=== PATIENT | female | born 1995 | race Two or more races ===

== ENCOUNTER 2025-03-07 14:11 | Emergency (ER) | payer MEDICAID, OTHER ==
[~2025-03-07] VITALS: Ht 152.4 cm; Wt 85.2 kg
--- NOTE | 2025-03-07 14:21 | ECG ---
[facility] Test Date: 2025-03-07 Test Time: 14:20:54 Pat Name: LITO DELEON Department: ER Room: Gender: F Baller Tender: SHAZIA : 1995 Requested By: ELIAS HUITRON Order Number: [id number] Reading MD: Gamal Snow Measurements Intervals [place] Rate: 103 P: 43 [place]: 155 QRS: 60 QRSD: 112 T: 35 QT: 341 QTc: 447 Interpretive Statements Sinus tachycardia Incomplete right bundle branch block Baseline wander in lead(s) I,II,aVR Electronically Signed On 03-08-2025 21:03:11 PDT by Gamal Snow Please click the below link to view image of tracing.
[2025-03-07 14:43] LABS: Urine Bacteria FEW /hpf (None Seen); Urine Blood TRACE /uL (Negative); Urine Clarity Turbid (Clear); Urine Color Yellow (Yellow); Urine Mucus FEW (None Seen); Urine Protein, UAD TRACE (Negative); Urine Specific Gravity 1.032 (1.001-1.035); Urine Squamous Epithelial Cell MOD /hpf (<5); Urine Urobilinogen Normal (Negative); Urine WBC 12 /HPF (0-5); Urine pH 6.5 (5.0-9.0)
--- NOTE | 2025-03-07 15:25 | ED.PDOC ---
GI ASSESSMENT HPI Comments 29 year old female presents to the ED with a chief complaint of abdominal pain onset last night. Patient states she began experiencing epigastric pain radiates to chest as well as shortness of breath. Patient noticed pain worsens when she tries to lay down. Denies PMHx as well as dizziness, nausea, vomiting, diarrhea, headache, fever, chills. No other symptoms or modifying factors present at this time. 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 Family History Family History: Reviewed,noncontributory to illness, No family hx of Cancer, No family hx of DM, No family hx of Heart christie, No family hx of HTN, No family hx ofKidney christie, No family hx of Liver christie, No family hx of Lung christie, No family hx of Stroke Social History Smoker: Non-Smoker Alcohol: Denies ETOH Use Drugs: Denies Drug Use Lives In: Home Constitutional: denies: chills, diaphoresis, fatigue, fever, malaise, sweats, weakness, others EENTM: denies: blurred vision, double vision, ear bleeding, ear discharge, ear drainage, ear pain, ear ringing, eye pain, eye redness, hearing loss, mouth pain, mouth swelling, nasal discharge, nose bleeding, nose congestion, nose pain, photophobia, tearing, throat pain, throat swelling, voice changes, others Respiratory: reports: shortness of breath; denies: cough, hemoptysis, orthopnea, SOB at rest, SOB with excertion, stridor, wheezing, others Cardiovascular: reports: chest pain; denies: dizzy spells, diaphoresis, Dyspnea on exertion, edema, irregular heart beat, left arm pain, lightheadedness, palpitations, PND, syncope, others Gastrointestinal: reports: abdominal pain; denies: abdomen distended, blood streaked bowels, constipated, diarrhea, dysphagia, difficulty swallowing, hematemesis, melena, nausea, poor appetite, poor fluid intake, rectal bleeding, rectal pain, vomiting, others Genitourinary: denies: abnormal vagina bleeding, burning, dyspareunia, dysuria, flank pain, frequency, hematuria, incontinence, pain, , vagina discharge, urgency, others Neurological: denies: dizziness, fainting, headache, left sided numbness, left sided weakness, numbness, paresthesia, pre-existing deficit, right sided numbness, right sided weakness, seizure, speech problems, tingling, tremors, we akness, others Musculoskeletal: denies: back pain, gout, joint pain, joint swelling, muscle pain, muscle stiffness, neck pain, others Integumetry: denies: bruises, change in color, change in hair/nails, dryness, laceration, lesions, lumps, rash, wounds, others Allergic/Immunocompromised: denies: Difficulty Healing, Frequent Infections, Hives, Itching, others Hematologic/Lymphatic: denies: anemia, blood clots, easy bleeding, easy bruising, swollen glands, others Endocrine: denies: excessive hunger, excessive sweating, excessive thirst, excessive urination, flushing, intolerance to cold, intolerance to heat, unexplained weight gain, unexplained weight loss, others Psychiatric: denies: anxiety, bipolar disorder, depression, hopeless, panic disorder, schizophrenia, sleepless, suicidal, others All Other Systems: Reviewed and Negative Physical Exam General Appearance: No Apparent Distress, Normal HEENT: Normal ENT Inspection, Pharynx Normal, TMs Normal Neck: Full Range of Motion, Non-Tender, Normal, Normal Inspection Respiratory: Chest Non-Tender, Lungs Clear, No Accessory Muscle Use, No Respiratory Distress, Normal Breath Sounds Cardiovascular: No Edema, No JVD, No Murmur, No Gallop, Normal Peripheral Pulses, Regular Rate/Rhythm Breast Exam: Deferred Gastrointestinal: No Organomegaly, Non Tender, No Pulsatile Mass, Normal Bowel Sounds, Soft Genitalia: Deferred Pelvic: Deferred Rectal: Deferred Extremities: No calf tenderness, Normal capillary refill, Normal inspection, Normal range of motion, Non-tender, No pedal edema Musculoskeletal : Apperance: Normal Neurologic: Alert, metalizing supervisor II-XII nml as Tested, No Motor Deficits, Normal Affect, Normal Mood, No Sensory Deficits Cerebellar Function: Normal Reflexes: Normal Skin: Dry, Normal Color, Warm Lymphatic: No Adenopathy EKG EKG : Pulse Rate (adult): 103 Cardiac Rhythm: ST Was a procedure done? Was a procedure done?: No GI differential Dx Differential Diagnosis: GI hemorrhage, Ovarian cyst/torsion, UTI, Urolithiasis, Diabetes/ DKA, Drug toxicity, Electrolyte Imbalance, Food Poisoning, Impaction, Malnutrition, Anemia X-Ray, Labs, Meds, VS Vital Signs Date Time Temp Pulse Resp B/P (MAP) Pulse Ox O2 Delivery O2 Flow Rate FiO2 03/07/25 17:13 99.8 111 20 124/74 (91) 99 99.8 03/07/25 15:25 103 03/07/25 14:20 103 03/07/25 14:14 98.1 101 16 115/86 (96) 98 98.1 Lab Test 03/07/25 15:29 03/07/25 14:32 03/07/25 14:19 Range/Units Troponin I High Sensitivity < 3 L < 3 L </=34 ng/L Urine Color Yellow Yellow Urine Clarity Turbid H Clear Urine pH 6.5 5.0-9.0 Urine Specific [place] 1.032 1.001-1.035 Urine Protein Trace H Negative Urine Ketones Negative Negative Urine Blood Trace H Negative /uL Urine Nitrite Negative Negative Urine Bilirubin Negative Negative Urine Urobilinogen Normal Negative mg/dL Urine Leukocyte Esterase 2+ Negative /uL Urine RBC 13 0 - 4 /hpf Urine Microscopic WBC 12 H 0-5 /HPF Urine Squamous Epithelial Cells Mod <5 /hpf Urine Bacteria Few H None Seen /hpf Urine Mucus Few None Seen Urine Glucose Normal Normal mg/dL Urine Test Negative Negative White Blood Count 8.6 4.4-10.8 10^3/uL Red Blood Count 4.91 4.0-5.20 10^6/uL Hemoglobin 14.6 12.2-16.2 g/dL Hematocrit 42.6 36.0-46.0 % Mean Corpuscular Volume 86.7 80.0-100.0 fL Mean Corpuscular Hemoglobin 29.6 28.0-32.0 pg Mean Corpuscular Hemoglobin Concent 34.2 32.0-36.0 g/dL Red Cell Distribution Width 13.5 11.8-14.3 % Platelet Count 302 140-450 10^3/uL Mean Platelet Volume 7.9 6.9-10.8 fL Neutrophils (%) (Auto) 71.5 37.0-80.0 % Lymphocytes (%) (Auto) 19.2 10.0-50.0 % Monocytes (%) (Auto) 8.1 0.0-12.0 % Eosinophils (%) (Auto) 0.9 0.0-7.0 % Basophils (%) (Auto) 0.3 0.0-2.0 % Neutrophils # (Auto) 6.1 1.6-8.6 10 ^3/uL Lymphocytes # (Auto) 1.6 0.4-5.4 10 ^3/uL Monocytes # (Auto) 0.7 0-1.3 10 ^3/uL Eosinophils # (Auto) 0.1 0-0.8 10 ^3/uL Basophils # (Auto) 0 0-0.2 10 ^3/uL Nucleated Red Blood Cells 0.1 % Sodium Level 139 136-145 mmol/L Potassium Level 4.0 3.5-5.1 mmol/L Chloride Level 101 98-107 mmol/L Carbon Dioxide Level 30 20-31 mmol/L Anion Gap 8 5-15 Blood Urea Nitrogen 11 9-23 mg/dL Creatinine 0.64 0.550-1.02 mg/dL Glomerular Filtration Rate Calc 123 >90 mL/min BUN/Creatinine Ratio 17.2 10.0-20.0 Serum Glucose 93 74-106 mg/dL Calcium Level 9.8 8.7-10.4 mg/dL Total Bilirubin 0.6 0.2-1.0 mg/dL Aspartate Amino Transferase (AST) 17 13-40 U/L Alanine Aminotransferase (ALT) 21 7-40 U/L Alkaline Phosphatase 84 46-116 U/L Total Protein 7.0 5.7-8.2 g/dL Albumin 4.9 H 3.2-4.8 g/dL Lipase 34 12-53 U/L Time of 1ST Reevaluation: 15:32 Reevaluation 1ST: Unchanged Patient Education/Counseling: Diagnosis, Treatment, Prognosis Family Education/Counseling: No Family Present Departure 1 Departure Time of Disposition: 17:52 (Patient likely with gastroenteritis. Patient's workup is otherwise benign. We will discharge patient home with outpatient follow up) Impression: Primary Impression: Acute chest pain Additional Impression: Gastritis Qualified Codes: K29.00 - Acute gastritis without bleeding Disposition: HOME / SELF CARE / HOMELESS Condition: Stable Additional Instructions: You presented today with chest pain. Your workup today was benign including labs, troponin, EKG, chest x-ray. Your pain may be from musculoskeletal strain, acid reflux, gastritis, anxiety, or many other factors. It is important to follow up with your regular doctor within 1 week. If your symptoms worsen or you have any other concerns please return to the emergency room. Discharged With: Self Critical Care Note Critical Care Time?: No Stability Stability form required: No I personally scribed for ELIAS HUITRON MD ([email or web address]) on 03/07/25 at 15:25. Electronically submitted by Debra Ritchie ([email or web address]). ELIAS HUITRON MD March 07, 2025 15:25
[2025-03-07 15:36] LABS: Basophils # (auto) 0 10 ^3/uL (0-0.2); Basophils % (auto) 0.3 % (0.0-2.0); Eosinophils # (auto) 0.1 10 ^3/uL (0-0.8); Eosinophils % (auto) 0.9 % (0.0-7.0); Hematocrit 42.6 % (36.0-46.0); Hemoglobin 14.6 g/dL (12.2-16.2); Lymphocytes # (auto) 1.6 10 ^3/uL (0.4-5.4); Lymphocytes % (auto) 19.2 % (10.0-50.0); Mean Corpuscular Hemoglobin 29.6 pg (28.0-32.0); Mean Corpuscular Hgb Conc. 34.2 g/dL (32.0-36.0); Mean Corpuscular Volume 86.7 fL (80.0-100.0); Monocytes # (auto) 0.7 10 ^3/uL (0-1.3); Monocytes % (auto) 8.1 % (0.0-12.0); Neutrophils # (auto) 6.1 10 ^3/uL (1.6-8.6); Neutrophils % (auto) 71.5 % (37.0-80.0); Nucleated Red Blood Cells % 0.1 %; Platelet Count (auto) 302 10^3/uL (140-450); Red Blood Cells 4.91 10^6/uL (4.0-5.20); Red Cell Distribution Width 13.5 % (11.8-14.3); White Blood Cell 8.6 10^3/uL (4.4-10.8)
[2025-03-07 15:47] LABS: Alanine Aminotransferase 21 U/L (7-40); Albumin 4.9 g/dL (3.2-4.8); Alkaline Phosphatase 84 U/L (46-116); Anion Gap 8 (5-15); Aspartate Aminotransferase 17 U/L (13-40); BUN/Creatinine Ratio 17.2 (10.0-20.0); Bilirubin, Total 0.6 mg/dL (0.2-1.0); Blood Urea Nitrogen 11 mg/dL (9-23); Calcium 9.8 mg/dL (8.7-10.4); Carbon Dioxide 30 mmol/L (20-31); Chloride 101 mmol/L (98-107); Glucose 93 mg/dL (74-106); Lipase 34 U/L (12-53); Sodium 139 mmol/L (136-145)
[2025-03-07 17:13] VITALS: BP 124/74; PULSE 111; RESP 20; TEMP 99.8; O2SAT 99
--- NOTE | 2025-03-07 17:46 | DVH ---
CHEST RADIOGRAPH Indication: chest pain Technique: Single frontal view of the chest was obtained Comparison: None FINDINGS: Lines and Tubes: None Lungs: No focal consolidation. Pleura: No effusion. No pneumothorax. Cardiomediastinal contours: Unremarkable Bones: No acute osseous abnormality. IMPRESSION: No acute cardiopulmonary disease.
[2025-03-07] MEDS: MAALOX PLUS or MAALOX 30 ML PO ONE (18:27)
[2025-03-07] MEDS: cefTRIAXone W LIDOCAINE 1 GM IM IM ONE (18:27)
[2025-03-07] MEDS: FAMOTIDINE 20 MG TAB PO ONE (18:28)
[2025-03-07] MEDS: LIDOCAINE 1% HCL (LOCAL ANESTH.) INJ 20ML MDV ONE (18:28)
[2025-03-07] MEDS: cefTRIAXone SOD 1,000 MG VL ONE (18:29)
[2025-03-07] MEDS ORDERED: LIDOCAINE 1% HCL (LOCAL ANESTH.) INJ 20ML MDV IJ ONE (18:30)
== END 2025-03-07 18:41 | disposition home or self-care (01) ==
LOC: ER 14:16
DX: K29.70 Gastritis, unspecified, without bleeding (principal)
CPT/HCPCS: 36415; 71045; 80053; 81001; 81025; 83690; 84484; 85025; 93005; 96372; 99285; J0696; J2003

== ENCOUNTER 2025-03-08 20:27 | Inpatient (IN) | payer MEDICAID ==
[~2025-03-08] VITALS: Ht 149.9 cm; Wt 86.8 kg
--- NOTE | 2025-03-08 21:08 | ED.PDOC ---
GI ASSESSMENT HPI Comments 29 year old female presents to the ED with chief complaint of abdominal pain. Patient reports that she has been experiencing upper abdominal pain with associated SOB due to the pain for the past 5 days. Patient was seen in ED yesterday for the same complaint and she was diagnosed with a UTI and possible gastritis, given an antibiotic injection and GI cocktail and discharged home from the ED. Patient states pain has not improved. Patient denies any N/V/D, dizziness, fever, chills, dysuria, hematuria, flank pain, hematemesis, or melena. Her last bowel movement was 2 days ago. Time Seen by MD: 21:05 Reviewed Notes: Nurses Notes, Medications, Allergies Allergies: Coded Allergies: NO KNOWN ALLERGIES (Unverified , 03/07/25) Information Source: Patient Mode of Arrival: Ambulatory Timing: Days Duration: Since onset Prehospital treatment: None Quality: Sharp Vomitus: None Stool: Impaction Severity: Moderate Recent: None Recent Hx of: None Pain Location: Epigastric Modifying Factors: Nothing Associated sign and symptoms: Constipation, Abdominal Pain Past Medical History PAST MEDICAL HISTORY: UTI'S Past Medical History (Other): Umbilical hernia Surgical History: Denies all surgeries BLOCK 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: No Pertinent BLOCK 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 Family History Family History: Reviewed,noncontributory to illness, No family hx of Cancer, No family hx of DM, No family hx of Heart christie, No family hx of HTN, No family hx ofKidney christie, No family hx of Liver christie, No family hx of Lung christie, No family hx of Stroke Social History Smoker: Non-Smoker Alcohol: Denies ETOH Use Drugs: Marijuana Lives In: Home Constitutional: denies: chills, diaphoresis, fatigue, fever, malaise, sweats, weakness, others EENTM: denies: blurred vision, double vision, ear bleeding, ear discharge, ear drainage, ear pain, ear ringing, eye pain, eye redness, hearing loss, mouth pain, mouth swelling, nasal discharge, nose bleeding, nose congestion, nose pain, photophobia, tearing, throat pain, throat swelling, voice changes, others Respiratory: reports: shortness of breath; denies: cough, hemoptysis, orthopnea, SOB at rest, SOB with excertion, stridor, wheezing, others Cardiovascular: denies: chest pain, dizzy spells, diaphoresis, Dyspnea on exertion, edema, irregular heart beat, left arm pain, lightheadedness, palpitations, PND, syncope, others Gastrointestinal: reports: abdominal pain, constipated; denies: abdomen distended, blood streaked bowels, diarrhea, dysphagia, difficulty swallowing, hematemesis, melena, nausea, poor appetite, poor fluid intake, rectal bleeding, rectal pain, vomiting, others Genitourinary: denies: abnormal vagina bleeding, burning, dyspareunia, dysuria, flank pain, frequency, hematuria, incontinence, pain, , vagina discharge, urgency, others Neurological: denies: dizziness, fainting, headache, left sided numbness, left sided weakness, numbness, paresthesia, pre-existing deficit, right sided numbness, right sided weakness, seizure, speech problems, tingling, tremors, weakness, others Musculoskeletal: denies: back pain, gout, joint pain, joint swelling, muscle pain, muscle stiffness, neck pain, others Integumetry: denies: bruises, change in color, change in hair/nails, dryness, laceration, lesions, lumps, rash, wounds, others Allergic/Immunocompromised: denies: Difficulty Healing, Frequent Infections, Hives, Itching, others Hematologic/Lymphatic: denies: anemia, blood clots, easy bleeding, easy bruising, swollen glands, others Endocrine: denies: excessive hunger, excessive sweating, excessive thirst, excessive urination, flushing, intolerance to cold, intolerance to heat, unexplained weight gain, unexplained weight loss, others Psychiatric: denies: anxiety, bipolar disorder, depression, hopeless, panic dis order, schizophrenia, sleepless, suicidal, others All Other Systems: Reviewed and Negative Physical Exam General Appearance: Moderate Distress, Obese HEENT: Other (Pupils and face symmetric. Moist mucous membranes.) Neck: Full Range of Motion, Normal Inspection Respiratory: Lungs Clear, No Accessory Muscle Use, No Respiratory Distress, Normal Breath Sounds Cardiovascular: No Edema, No JVD, Tachycardia Breast Exam: Deferred Gastrointestinal: Epigastric, LLQ, RUQ, Soft, Tenderness Genitalia: Deferred Pelvic: Deferred Rectal: Deferred Extremities: Normal inspection, Normal range of motion, Non-tender, No pedal edema Neurologic: Alert (Oriented x4), Normal Affect, Normal Mood, Other (Ambulatory) Cerebellar Function: NOT DONE Reflexes: NOT DONE Skin: Dry, Normal Color, Warm Lymphatic: NOT DONE Was a procedure done? Was a procedure done?: No GI differential Dx Differential Diagnosis: Cholecystitis, Gastritis/PUD, Gastroenteritis, Pancreatitis, UTI, Dehydration, Electrolyte Imbalance, Food Poisoning, Bacterial, Viral Other Differential Diagnosis Colitis, diverticular disease, among others X-Ray, Labs, Meds, VS Vital Signs Date Time Temp Pulse Resp B/P (MAP) Pulse Ox O2 Delivery O2 Flow Rate FiO2 03/08/25 23:02 100.0 03/08/25 22:52 Room Air* 0 21 03/08/25 22:46 105 20 113/66 03/08/25 22:19 120 17 97 Room Air 03/08/25 22:19 100.2 120 17 117/75 (89) 97 100.2 03/08/25 22:17 100.2 03/08/25 22:16 120 17 117/75 03/08/25 21:13 100.8 125 17 134/84 (101) 95 100.8 Lab Test 03/08/25 21:32 03/08/25 21:20 Range/Units Urine Color Light-yellow Yellow Urine Clarity Clear Clear Urine pH 7.5 5.0-9.0 Urine Specific [place] 1.007 1.001-1.035 Urine Protein Negative Negative Urine Ketones Negative Negative Urine Blood 1+ H Negative /uL Urine Nitrite Negative Negative Urine Bilirubin Negative Negative Urine Urobilinogen Normal Negative mg/dL Urine Leukocyte Esterase 2+ Negative /uL Urine RBC 3 0 - 4 /hpf Urine Microscopic WBC 11 H 0-5 /HPF Urine Squamous Epithelial Cells Few <5 /hpf Urine Bacteria None seen None Seen /hpf Urine Hyaline Casts Few 0 - 2 /lpf Urine Glucose Normal Normal mg/dL White Blood Count 12.6 #H 4.4-10.8 10^3/uL Red Blood Count 4.99 4.0-5.20 10^6/uL Hemoglobin 14.7 12.2-16.2 g/dL Hematocrit 43.0 36.0-46.0 % Mean Corpuscular Volume 86.2 80.0-100.0 fL Mean Corpuscular Hemoglobin 29.5 28.0-32.0 pg Mean Corpuscular Hemoglobin Concent 34.3 32.0-36.0 g/dL Red Cell Distribution Width 13.7 11.8-14.3 % Platelet Count 294 140-450 10^3/uL Mean Platelet Volume 7.5 6.9-10.8 fL Neutrophils (%) (Auto) 71.8 37.0-80.0 % Lymphocytes (%) (Auto) 17.7 10.0-50.0 % Monocytes (%) (Auto) 9.5 0.0-12.0 % Eosinophils (%) (Auto) 0.3 0.0-7.0 % Basophils (%) (Auto) 0.7 0.0-2.0 % Neutrophils # (Auto) 9.1 H 1.6-8.6 10 ^3/uL Lymphocytes # (Auto) 2.2 0.4-5.4 10 ^3/uL Monocytes # (Auto) 1.2 0-1.3 10 ^3/uL Eosinophils # (Auto) 0 0-0.8 10 ^3/uL Basophils # (Auto) 0.1 0-0.2 10 ^3/uL Nucleated Red Blood Cells 0.0 % Sodium Level 138 136-145 mmol/L Potassium Level 3.6 3.5-5.1 mmol/L Chloride Level 103 98-107 mmol/L Carbon Dioxide Level 24 20-31 mmol/L Anion Gap 11 5-15 Blood Urea Nitrogen 8 L 9-23 mg/dL Creatinine 0.70 0.550-1.02 mg/dL Glomerular Filtration Rate Calc 120 >90 mL/min BUN/Creatinine Ratio 11.4 10.0-20.0 Serum Glucose 117 H 74-106 mg/dL Lactic Acid Level 1.0 0.4-2.0 mmol/L Calcium Level 9.6 8.7-10.4 mg/dL Total Bilirubin 0.6 0.2-1.0 mg/dL Aspartate Amino Transferase (AST) 31 13-40 U/L Alanine Aminotransferase (ALT) 27 7-40 U/L Alkaline Phosphatase 85 46-116 U/L Troponin I High Sensitivity < 3 L </=34 ng/L Total Protein 7.6 5.7-8.2 g/dL Albumin 4.9 H 3.2-4.8 g/dL Lipase 36 12-53 U/L Current Medications Medications (Trade) Dose Ordered Sig/Stalin Route Start Time Stop Time Status Last Admin Sodium Chloride 1,000 ml @ 1,000 mls/hr Q1H ONCE IV 03/08/25 21:15 03/08/25 22:14 DC 03/08/25 22:06 Morphine Sulfate 4 mg ONCE ONCE IV 03/08/25 21:15 03/08/25 21:16 DC 03/08/25 22:16 Ondansetron HCl (Zofran) 4 mg ONCE ONCE IV 03/08/25 21:15 03/08/25 21:16 DC 03/08/25 22:17 Pantoprazole Sodium (Protonix) 40 mg ONCE ONCE IV 03/08/25 21:15 03/08/25 21:16 DC 03/08/25 22:17 Dicyclomine HCl (Bentyl Injection) 20 mg ONCE ONCE IM 03/08/25 21:15 03/08/25 21:16 DC 03/08/25 22:16 Acetaminophen (Tylenol Tablet Or Capsule) 1,000 mg ONCE ONCE PO 03/08/25 21:15 03/08/25 21:16 DC 03/08/25 22:17 Metronidazole 100 ml @ 100 mls/hr ONCE ONCE IV 03/08/25 22:45 03/08/25 23:44 03/08/25 23:19 PROCEDURE(s): ABPL - CT AB PEL WO CON-NO ORAL OR IV REASON: upper abd pain ORDER NUMBER(s): [id number], ACCESSION NUMBER(s): [id number] CT SCAN ABDOMEN AND PELVIS WITHOUT CONTRAST CLINICAL HISTORY: upper abd pain TECHNIQUE: Helical axial images are obtained from the lung bases through the pelvis without oral contrast. No intravenous contrast was administered. Coronal and sagittal reformatted images were generated from thin section reconstructions. One or more of the following radiation dose reduction techniques were used for this examination: automated exposure control, adjustment of the mA and/or kV according to patient size, use of iterative reconstruction technique. COMPARISON: None FINDINGS: LOWER THORAX: Imaged lung bases are grossly clear. ABDOMEN AND PELVIS: Evaluation of visceral and vascular structures is limited due to lack of contrast administration. As visualized, the unenhanced liver, spleen, pancreas and adrenals appear grossly unremarkable. No sizable, radiopaque cholelithiasis or biliary ductal di latation. No hydroureteronephrosis or sizable, obstructing urinary tract calculi identified. No evidence of abdominal aortic aneurysm. No evidence of small-bowel obstruction. Normal caliber appendix. There is marked circumferential thickening of the cecum and proximal ascending colon. There is associated luminal narrowing. Multiple enlarged right lower quadrant mesenteric lymph nodes are noted. No free intraperitoneal air or fluid identified at this time. Small fat containing umbilical hernia. No sizable bladder calculus. No destructive osseous lesions identified. IMPRESSION: Circumferential thickening of the cecum and proximal ascending colon with associated luminal narrowing. Multiple enlarged right lower quadrant mesenteric lymph nodes. Findings may be sequelae of an infectious/inflammatory process, however, neoplasm remains a concern. Recommend further workup and close follow- up to resolution. X-Ray, Labs, Meds, VS Comment 29-year-old female with history of umbilical hernia and UTI complaining of persistent upper abdominal pain since being seen in the ED yesterday for similar sxs. Vitals remarkable for temperature 100.8, heart rate 125 Exam remarkable for upper abdominal tenderness to palpation and tachycardia Rhythm strip independently interpreted by me: Sinus tach, rate 125, no ectopy. CT abdomen and pelvis IMPRESSION: Circumferential thickening of the cecum and proximal ascending colon with associated luminal narrowing. Multiple enlarged right lower quadrant mesenteric lymph nodes. Findings may be sequelae of an infectious/inflammatory process, however, neoplasm remains a concern. Recommend further workup and close follow- up to resolution. CBC remarkable for WBC 12.6, CMP, lipase and lactate unremarkable, UA positive for blood, leukocyte esterase and WBCs Patient treated with the following in the ED: 1 L 0.9 normal saline IV bolus, Bentyl 20 mg IM, morphine 4 mg IV, Zofran 4 mg I V, Protonix 40 mg IV, Levaquin 500 mg IV, Flagyl 500 mg IV On re-evaluation, patient states pain has improved. Vitals were stable. Plan is to admit the patient for IV antibiotics and GI evaluation. Time of 1ST Reevaluation: 22:05 Reevaluation 1ST: Improved Patient Education/Counseling: Diagnosis, Treatment Family Education/Counseling: No Family Present Departure 1 Departure Time of Disposition: 23:00 Impression: Primary Impression: Colitis Additional Impression: UTI (urinary tract infection) Qualified Codes: N39.0 - Urinary tract infection, site not specified Disposition: ADMITTED INPATIENT Admit to: Med Surg Condition: Guarded Critical Care Note Critical Care Time?: No Stability Stability form required: No Heart Score Heart Score: Heart Score Response (Comments) Value History N/A 0 EKG N/A 0 Age N/A 0 Risk Factors N/A 0 Troponin N/A 0 Total 0 I personally scribed for TATYANA VILLAVICENCIO MD ([email or web address]) on 03/08/25 at 21:08. Electronically submitted by Jatinder Mathew ([email or web address]). TATYANA VILLAVICENCIO MD March 08, 2025 21:08
[2025-03-08 21:31] LABS: Basophils # (auto) 0.1 10 ^3/uL (0-0.2); Basophils % (auto) 0.7 % (0.0-2.0); Eosinophils # (auto) 0 10 ^3/uL (0-0.8); Eosinophils % (auto) 0.3 % (0.0-7.0); Hemoglobin 14.7 g/dL (12.2-16.2); Lymphocytes # (auto) 2.2 10 ^3/uL (0.4-5.4); Lymphocytes % (auto) 17.7 % (10.0-50.0); Mean Corpuscular Hemoglobin 29.5 pg (28.0-32.0); Mean Corpuscular Hgb Conc. 34.3 g/dL (32.0-36.0); Mean Corpuscular Volume 86.2 fL (80.0-100.0); Monocytes # (auto) 1.2 10 ^3/uL (0-1.3); Monocytes % (auto) 9.5 % (0.0-12.0); Neutrophils # (auto) 9.1 10 ^3/uL (1.6-8.6); Neutrophils % (auto) 71.8 % (37.0-80.0); Platelet Count (auto) 294 10^3/uL (140-450); Red Blood Cells 4.99 10^6/uL (4.0-5.20); Red Cell Distribution Width 13.7 % (11.8-14.3); White Blood Cell 12.6 10^3/uL (4.4-10.8)
[2025-03-08 21:34] LABS: Urine Bacteria None Seen /hpf (None Seen)
[2025-03-08 21:40] LABS: Urine Blood 1+ /uL (Negative); Urine Clarity Clear (Clear); Urine Color Light-Yellow (Yellow); Urine Hyaline Cast FEW /lpf (0 - 2); Urine Protein, UAD Negative (Negative); Urine Specific Gravity 1.007 (1.001-1.035); Urine Squamous Epithelial Cell FEW /hpf (<5); Urine Urobilinogen Normal (Negative); Urine WBC 11 /HPF (0-5); Urine pH 7.5 (5.0-9.0)
[2025-03-08 21:50] LABS: Alanine Aminotransferase 27 U/L (7-40); Alkaline Phosphatase 85 U/L (46-116); Anion Gap 11 (5-15); Aspartate Aminotransferase 31 U/L (13-40); BUN/Creatinine Ratio 11.4 (10.0-20.0); Blood Urea Nitrogen 8 mg/dL (9-23); Calcium 9.6 mg/dL (8.7-10.4); Carbon Dioxide 24 mmol/L (20-31); Chloride 103 mmol/L (98-107); Glucose 117 mg/dL (74-106); Lipase 36 U/L (12-53); Potassium 3.6 mmol/L (3.5-5.1); Sodium 138 mmol/L (136-145); Total Protein 7.6 g/dL (5.7-8.2)
[2025-03-08 21:51] LABS: Albumin 4.9 g/dL (3.2-4.8); Bilirubin, Total 0.6 mg/dL (0.2-1.0)
[2025-03-08] MEDS: ACETAMINOPHEN 650 mg PER 20.3 mL UD PO ONE (22:04)
[2025-03-08] MEDS: SODIUM CHLORIDE 0.9% 1,000 ML IV ONE (22:06)
[2025-03-08] MEDS: MORPHINE SULFATE 4 MG/ML SYR/VIAL IV ONE (22:16)
[2025-03-08] MEDS: DICYCLOMINE HCL (10MG/ML) 2 ML AMPULE IM ONE (22:16)
[2025-03-08] MEDS: ONDANSETRON HCL 4 MG/2 ML VIAL IV ONE (22:17)
[2025-03-08] MEDS: ACETAMINOPHEN 500 MG TAB or CAP PO ONE (22:17)
[2025-03-08] MEDS: PANTOPRAZOLE 40 MG/10 ML VIAL INJ IV ONE (22:17)
--- NOTE | 2025-03-08 22:27 | DVH ---
CT SCAN ABDOMEN AND PELVIS WITHOUT CONTRAST CLINICAL HISTORY: upper abd pain TECHNIQUE: Helical axial images are obtained from the lung bases through the pelvis without oral cont rast. No intravenous contrast was administered. Coronal and sagittal reformatted images were generate d from thin section reconstructions. One or more of the following radiation dose reduction techniques were used for this examination: automated exposure control, adjustment of the mA and/or kV according to patient size, use of iterative reconstruction technique. COMPARISON: None FINDINGS: LOWER THORAX: Imaged lung bases are grossly clear. ABDOMEN AND PELVIS: Evaluation of visceral and vascular structures is limited due to lack of contrast administration. As visualized, the unenhanced liver, spleen, pancreas and adrenals appear grossly unremarkable. No si zable, radiopaque cholelithiasis or biliary ductal dilatation. No hydroureteronephrosis or sizable, obstructing urinary tract calculi identified. No evidence of abdominal aortic aneurysm. No evidence of small-bowel obstruction. Normal caliber appendix. There is marked circumferential thic kening of the cecum and proximal ascending colon. There is associated luminal narrowing. Multiple enl arged right lower quadrant mesenteric lymph nodes are noted. No free intraperitoneal air or fluid lydia ntified at this time. Small fat containing umbilical hernia. No sizable bladder calculus. No destructive osseous lesions identified. IMPRESSION: Circumferential thickening of the cecum and proximal ascending colon with associated luminal narrowin g. Multiple enlarged right lower quadrant mesenteric lymph nodes. Findings may be sequelae of an infe ctious/inflammatory process, however, neoplasm remains a concern. Recommend further workup and close follow-up to resolution.
[2025-03-08] MEDS: metroNIDAZOLE 500MG/100ML 100 ML IV ONE (23:19)
[2025-03-08] MEDS: levoFLOXacin 500MG 100 ML IV ONE (23:28)
--- NOTE | 2025-03-08 23:56 | DVHHP2 ---
History of Present Illness Reason for Visit: Colitis History of Present Illness The patient is a 29-year-old female with past medical history of UTIs and umbilical who presented to [facility] ED with complaint of abdominal pain. Patient reports she has been experiencing upper abdominal pain associated with nausea for the past 5 days. Patient was seen in ED yesterday for the same complaint and she was diagnosed with a UTI and possible gastritis, given an antibiotic injection and GI cocktail and discharged home, but with no relief that prompted this visit. Patient was seen and evaluated in the ED, laboratory data shows WBC 12.6, platelets 294, sodium 138, potassium 3.6, BUN eight, creatinine 0.70, glucose 117, albumin 4.9, troponin three, urinalysis positive for urinary tract infection. Abdomen/pelvis CT revealing circumferential thickening of the 2nd and proximal ascending colon with associated luminal narrowing, multiple enlarged right lower quadrant mesenteric lymph node, findings may be sequelae of an infectious/inflammatory process, however, neoplasm remains a concern. Patient was started on IV antibiotic regimen Flagyl, IV Rocephin, please see medication orders section in the computer. On my assessment, patient denied chest pain, no headache, no dizziness, no diaphoresis, no shortness of breath, no nausea, no vomiting, no fever, no chills. Patient was admitted for further evaluation and medical management. Past Medical History UTI'S, Umbilical hernia Past Surgical History Denies all surgeries Family History Reviewed, noncontributory to the management of this case. Past Social History The patient lives at home, denies smoking, alcohol or illicit drugs abuse. Review of Systems Constitutional: No: Fever, Chills, Sweats, Weakness, Malaise, Other Eyes: No: Pain, Vision change, Conjunctivae inflammation, Eyelid inflammation, Other, Redness ENT: No: Ear pain, Ear discharge, Nose pain, Nose discharge, Nose congestion, Mouth pain, Mouth swelling, Throat pain, Throat swelling, Other Respiratory: No: Cough, Dry, Shortness of breath, SOB with excertion, Wheezing, Hemoptysis, Pleuritic Pain, Sputum, Wheezing, Other Cardiovascular: No: Chest Pain, Palpitations, Orthopnea, Paroxysmal Noc. Dyspnea, Edema, Lt Headedness, Other Gastrointestinal: Nausea, Abdominal Pain, Constipation; No: Vomiting, Diarrhea, Melena, Hematochezia, Other Genitourinary: No Dysuria, No Frequency, No Incontinence, No Hematuria, No Retention, No Other Musculoskeletal: No: other, neck pain, shoulder pain, arm pain, back pain, hand pain, leg pain, foot pain Skin: No: Rash, Lesions, Jaundice, Bruising, Other Neurological: No: Weakness, Numbness, Incoordination, Change in speech, Confusion, Seizures, Other Allergies: Coded Allergies: NO KNOWN ALLERGIES (Unverified , 03/07/25) Exam Vital Signs Vital Signs Date Time Temp Pulse Resp B/P (MAP) Pulse Ox O2 Delivery O2 Flow Rate FiO2 03/08/25 23:02 100.0 03/08/25 22:52 Room Air* 0 21 03/08/25 22:46 105 20 113/66 03/08/25 22:19 97 General Appearance: Alert, Oriented X3, Cooperative, No acute distress HEENT: Atraumatic, PERRLA, EOMI, Mucous membr. moist/pink Respiratory: Clear to auscultation, Normal air movement Cardiovascular: Regular rate, Normal S1, Normal S2, No murmurs Abdominal: Normal bowel sounds, Soft, No tenderness, No hepatospenomegaly, No masses Extremities: No clubbing, No cyanosis, No edema, Normal pulses, No tenderness/swelling Skin: No rashes, No breakdown, No significant lesion Neuro: Normal gait, Normal speech, Strength at 5/5 X4 ext, Normal tone, Sensation intact, Cranial nerves 3-12 NL, Reflexes 2+ Psych/Mental Status: Mental status NL, Mood NL Labs/Xrays Labs Test 03/08/25 21:32 03/08/25 21:20 Range/Units Urine Color Light-yellow Yellow Urine Clarity Clear Clear Urine pH 7.5 5.0-9.0 Urine Specific [place] 1.007 1.001-1.035 Urine Protein Negative Negative Urine Ketones Negative Negative Urine Blood 1+ H Negative /uL Urine Nitrite Negative Negative Urine Bilirubin Negative Negative Urine Urobilinogen Normal Negative mg/dL Urine Leukocyte Esterase 2+ Negative /uL Urine RBC 3 0 - 4 /hpf Urine Microscopic WBC 11 H 0-5 /HPF Urine Squamous Epithelial Cells Few <5 /hpf Urine Bacteria None seen None Seen /hpf Urine Hyaline Casts Few 0 - 2 /lpf Urine Glucose Normal Normal mg/dL White Blood Count 12.6 #H 4.4-10.8 10^3/uL Red Blood Count 4.99 4.0-5.20 10^6/uL Hemoglobin 14.7 12.2-16.2 g/dL Hematocrit 43.0 36.0-46.0 % Mean Corpuscular Volume 86.2 80.0-100.0 fL Mean Corpuscular Hemoglobin 29.5 28.0-32.0 pg Mean Corpuscular Hemoglobin Concent 34.3 32.0-36.0 g/dL Red Cell Distribution Width 13.7 11.8-14.3 % Platelet Count 294 140-450 10^3/uL Mean Platelet Volume 7.5 6.9-10.8 fL Neutrophils (%) (Auto) 71.8 37.0-80.0 % Lymphocytes (%) (Auto) 17.7 10.0-50.0 % Monocytes (%) (Auto) 9.5 0.0-12.0 % Eosinophils (%) (Auto) 0.3 0.0-7.0 % Basophils (%) (Auto) 0.7 0.0-2.0 % Neutrophils # (Auto) 9.1 H 1.6-8.6 10 ^3/uL Lymphocytes # (Auto) 2.2 0.4-5.4 10 ^3/uL Monocytes # (Auto) 1.2 0-1.3 10 ^3/uL Eosinophils # (Auto) 0 0-0.8 10 ^3/uL Basophils # (Auto) 0.1 0-0.2 10 ^3/uL Nucleated Red Blood Cells 0.0 % Sodium Level 138 136-145 mmol/L Potassium Level 3.6 3.5-5.1 mmol/L Chloride Level 103 98-107 mmol/L Carbon Dioxide Level 24 20-31 mmol/L Anion Gap 11 5-15 Blood Urea Nitrogen 8 L 9-23 mg/dL Creatinine 0.70 0.550-1.02 mg/dL Glomerular Filtration Rate Calc 120 >90 mL/min BUN/Creatinine Ratio 11.4 10.0-20.0 Serum Glucose 117 H 74-106 mg/dL Lactic Acid Level 1.0 0.4-2.0 mmol/L Calcium Level 9.6 8.7-10.4 mg/dL Total Bilirubin 0.6 0.2-1.0 mg/dL Aspartate Amino Transferase (AST) 31 13-40 U/L Alanine Aminotransferase (ALT) 27 7-40 U/L Alkaline Phosphatase 85 46-116 U/L Troponin I High Sensitivity < 3 L </=34 ng/L Total Protein 7.6 5.7-8.2 g/dL Albumin 4.9 H 3.2-4.8 g/dL Lipase 36 12-53 U/L PATIENT: LITO DELEON ACCT: [id number] UNIT: [id number] : 1995 LOC: ER ROOM / BED: / AGE / SEX: 29 / F ADM STATUS: REG ER SERVICE 10 ORDERING PHYSICIAN: TATYANA VILLAVICENCIO MD PROCEDURE(s): ABPL - CT AB PEL WO CON-NO ORAL OR IV REASON: upper abd pain ORDER NUMBER(s): [id number], ACCESSION NUMBER(s): [id number] CT SCAN ABDOMEN AND PELVIS WITHOUT CONTRAST CLINICAL HISTORY: upper abd pain TECHNIQUE: Helical axial images are obtained from the lung bases through the pelvis without oral contrast. No intravenous contrast was administered. Coronal and sagittal reformatted images were generated from thin section reconstructio ns. One or more of the following radiation dose reduction techniques were used for this examination: automated exposure control, adjustment of the mA and/or kV according to patient size, use of iterative reconstruction technique. COMPARISON: None FINDINGS: LOWER THORAX: Imaged lung bases are grossly clear. ABDOMEN AND PELVIS: Evaluation of visceral and vascular structures is limited due to lack of contrast administration. As visualized, the unenhanced liver, spleen, pancreas and adrenals appear grossly unremarkable. No sizable, radiopaque cholelithiasis or biliary ductal dilatation. No hydroureteronephrosis or sizable, obstructing urinary tract calculi identified. No evidence of abdominal aortic aneurysm. No evidence of small-bowel obstruction. Normal caliber appendix. There is marked circumferential thickening of the cecum and proximal ascending colon. There is associated luminal narrowing. Multiple enlarged right lower quadrant mesenteric lymph nodes are noted. No free intraperitoneal air or fluid identified at this time. Small fat containing umbilical hernia. No sizable bladder calculus. No destructive osseous lesions identified. IMPRESSION: Circumferential thickening of the cecum and proximal ascending colon with associated luminal narrowing. Multiple enlarged right lower quadrant mesenteric lymph nodes. Findings may be sequelae of an infectious/inflammatory process, however, neoplasm remains a concern. Recommend further workup and close follow- up to resolution. Assessment/Plan Assessment/Plan Colitis Acute abdominal pain UTI (urinary tract infection) Leukocytosis, unspecified Urinary tract infection, site not specified Plan 1. Admit to med surge unit 2. Breathing treatment 3. Pain control management 4. IV antibiotic management 5. Management of fluids and electrolytes 6. Consultation for hospitalist 7. Diagnostic test abdomen/pelvis CT 8. DVT prophylaxis on SCDs 9. Repeat labs CBC, CMP in a.m. 10. Home medication reviewed and reconciled 11. Continue with current medical management 12. Treatment plan discussed with patient and RN. Patient verbalized understanding. Plan discussed with: Patient, Other (RN) My Orders Orders - ARUN HERRON DNP Procedure Category Date Status Time Metronidazole Ivpb PHA 03/09/25 Verified Flagyl 06:00 Ceftriaxone Ivpb PHA 03/09/25 Verified Rocephin 09:00 Pantoprazole PHA 03/09/25 Verified (Protonix) 10:00 Admit ADMIT 03/08/25 Verified 23:51 Allergies KYLER 03/08/25 Verified 23:51 Code Status CODE 03/08/25 Verified 23:51 0.9% Ns 1000 Ml PHA 03/09/25 Verified 00:00 Oxygen Per Hour RT 03/08/25 Verified 23:51 Hydrocodone-Acet PHA 03/09/25 Verified 5/325mg Tab ([place] 00:00 Ondansetron Hcl PHA 03/09/25 Verified (Zofran) 00:00 Problem List: (1) Colitis (2) Acute abdominal pain (3) UTI (urinary tract infection) (4) Leukocytosis, unspecified (5) Urinary tract infection, site not specified Date of Service: March 08, 2025 Billing Provider: ARUN HERRON DNP Common Visit Codes: [id number] INP/OBS CARE (HIGH) ARUN HERRON DNP March 08, 2025 23:56
[2025-03-09] VITALS (9 sets, daily range): BP systolic 95–126; BP diastolic 60–81; PULSE 73–95; RESP 16–20; TEMP 97.5–98.8; O2SAT 95–98
[2025-03-09] MEDS: SODIUM CHLORIDE 0.9% 1,000 ML IV SCH
[2025-03-09] MEDS ORDERED: MORPHINE SULFATE INJ 2 MG/ml SYRG IV PRN
[2025-03-09] MEDS ORDERED: DOCUSATE SOD 100 MG CAP PO PRN
[2025-03-09] MEDS ORDERED: NITROGLYCERIN 0.4 MG SL TAB SL PRN
[2025-03-09] MEDS: HYDROcodone-ACET 5/325MG TAB PO PRN (00:25)
[2025-03-09] MEDS: metroNIDAZOLE 500MG/100ML 100 ML IV SCH (05:04)
[2025-03-09] MEDS: cefTRIAXone 1GM/50ML D5W 50 ML IV SCH (09:04)
[2025-03-09] MEDS: PANTOPRAZOLE 40 MG/10 ML VIAL INJ IV SCH (09:04)
[2025-03-09 09:14] LABS: Basophils # (auto) 0 10 ^3/uL (0-0.2); Basophils % (auto) 0.2 % (0.0-2.0); Eosinophils # (auto) 0.1 10 ^3/uL (0-0.8); Hemoglobin 12.5 g/dL (12.2-16.2); Lymphocytes % (auto) 19.3 % (10.0-50.0); Mean Corpuscular Hemoglobin 29.5 pg (28.0-32.0); Mean Corpuscular Hgb Conc. 33.7 g/dL (32.0-36.0); Mean Corpuscular Volume 87.6 fL (80.0-100.0); Monocytes # (auto) 1.3 10 ^3/uL (0-1.3); Monocytes % (auto) 12.7 % (0.0-12.0); Neutrophils # (auto) 6.9 10 ^3/uL (1.6-8.6); Neutrophils % (auto) 66.8 % (37.0-80.0); Platelet Count (auto) 244 10^3/uL (140-450); Red Blood Cells 4.22 10^6/uL (4.0-5.20); Red Cell Distribution Width 13.7 % (11.8-14.3); White Blood Cell 10.3 10^3/uL (4.4-10.8)
[2025-03-09 09:33] LABS: Alanine Aminotransferase 27 U/L (7-40); Alkaline Phosphatase 73 U/L (46-116); Anion Gap 10 (5-15); Aspartate Aminotransferase 28 U/L (13-40); BUN/Creatinine Ratio 14.8 (10.0-20.0); Calcium 8.9 mg/dL (8.7-10.4); Carbon Dioxide 24 mmol/L (20-31); Chloride 106 mmol/L (98-107); Glucose 93 mg/dL (74-106); Potassium 3.6 mmol/L (3.5-5.1); Sodium 140 mmol/L (136-145); Total Protein 6.1 g/dL (5.7-8.2)
[2025-03-09 09:34] LABS: Bilirubin, Total 0.5 mg/dL (0.2-1.0)
[2025-03-09 09:40] LABS: Blood Urea Nitrogen 8 mg/dL (9-23)
[2025-03-09] MEDS: MORPHINE SULFATE INJ 2 MG/ml SYRG IV PRN (12:11)
[2025-03-09] MEDS: ONDANSETRON HCL 4 MG/2 ML VIAL IV PRN (12:11)
--- NOTE | 2025-03-09 13:27 | DVHPN2 ---
Subjective - Patient continues to have pain epigastrium, tender to palpation. On ROS she describes it radiating to the bilateral flanks in the upper bilateral quadrants. Denies any vaginal or urethral discharge. Has 2 kids. No nausea no vomiting, no diarrhea, no dysuria. Reviewed: H&P Changes from previous H/P or p: No Changes General: Per HPI Eyes: No Pain, No Vision change, No Conjunctivae inflammation, No Eyelid inflammation, No Other, No Redness ENT: No Ear pain, No Ear discharge, No Nose pain, No Nose discharge, No Nose congestion, No Mouth pain, No Mouth swelling, No Throat pain, No Throat swelling, No Other Cardiovascular: No Chest Pain, No Palpitations, No Orthopnea, No Paroxysmal Noc. Dyspnea, No Edema, No Lt Headedness, No Other Respiratory: No Cough, No Dry, No Shortness of breath, No SOB with excertion, No Wheezing, No Hemoptysis, No Pleuritic Pain, No Sputum, No Other Gastrointestinal: Nausea; No Vomiting; Abdominal Pain; No Diarrhea; C onstipation; No Melena, No Hematochezia, No Other Genitourinary: No Dysuria, No Frequency, No Incontinence, No Hematuria, No Retention, No Other Musculoskeletal: No other, No neck pain, No shoulder pain, No arm pain, No back pain, No hand pain, No leg pain, No foot pain Skin: No Rash, No Lesions, No Jaundice, No Bruising, No Other Objective Vitals Vital Signs Date Time Temp Pulse Resp B/P (MAP) Pulse Ox O2 Delivery O2 Flow Rate FiO2 03/09/25 12:46 98.4 78 18 114/80 (91) 97 98.4 03/09/25 00:58 Room Air* 0 21 Intake/Output Intake and Output 03/09/25 06:59 Intake Total 1800 ml Balance 1800 ml Intake Oral 200 ml IV Total 1600 ml # Voids 1 Exam GEN: Healthy appearing, well-developed, NAD. HEENT: NC/AT; MMM. CV: RRR, no m/r/g. LUNGS: CTAB, no w/r/c. ABD: Tenderness to epigastrium, mildly hyperactive bowel sounds EXT: skin Warm, well perfused. no rashes. No clubbing, cyanosis, or edema. NEURO: Ambulating with no limitations. No focal deficits. Medications Current Medications Medications Dose Ordered Sig/Stalin Route Start Time Stop Time Status Last Admin Dose Admin Metronidazole 100 ml @ 100 mls/hr Q8HR IV 03/09/25 06:00 03/09/25 05:04 100 MLS/HR Ceftriaxone Sodium 50 ml @ 100 mls/hr DAILY@09 IV 03/09/25 09:00 03/09/25 09:04 100 MLS/HR Pantoprazole Sodium 40 mg DAILY IV 03/09/25 10:00 03/09/25 09:04 40 MG Sodium Chloride 1,000 ml @ 60 mls/hr [id number] IV 03/09/25 00:00 03/09/25 01:18 60 MLS/HR Acetaminophen/ Hydrocodone Bitart 1 tab Q4HP PRN PO 03/09/25 00:00 03/09/25 05:13 1 TAB Ondansetron HCl 4 mg Q4HP PRN IV 03/09/25 00:00 03/09/25 12:11 4 MG Docusate Sodium 100 mg BIDPRN PRN PO 03/09/25 00:00 Acetaminophen 650 mg Q6HP PRN PO 03/09/25 00:00 Morphine Sulfate 2 mg Q4HPRN PRN IV 03/09/25 00:00 03/09/25 12:11 2 MG Nitroglycerin 0.4 mg Q5MINP PRN SL 03/09/25 00:00 Morphine Sulfate 2 mg Q30M PRN IV 03/09/25 00:00 Laboratory Results Laboratory Tests 03/09/25 07:41 Chemistry Test 03/08/25 21:20 03/09/25 07:41 Albumin 4.9 g/dL (3.2-4.8) H 4.0 g/dL (3.2-4.8) Calcium Level 9.6 mg/dL (8.7-10.4) 8.9 mg/dL (8.7-10.4) Total Protein 7.6 g/dL (5.7-8.2) 6.1 g/dL (5.7-8.2) Lipid panel Test 03/08/25 21:20 Lipase 36 U/L (12-53) LFT Test 03/08/25 21:20 03/09/25 07:41 Alanine Aminotransferase (ALT) 27 U/L (7-40) 27 U/L (7-40) Alkaline Phosphatase 85 U/L (46-116) 73 U/L (46-116) Aspartate Amino Transferase (AST) 31 U/L (13-40) 28 U/L (13-40) Total Bilirubin 0.6 mg/dL (0.2-1.0) 0.5 mg/dL (0.2-1.0) Urinalysis Test 03/08/25 21:32 Urine Color Light-yellow (Yellow) Urine Clarity Clear (Clear) Urine pH 7.5 (5.0-9.0) Urine Specific [place] 1.007 (1.001-1.035) Urine Protein Negative (Negative) Urine Ketones Negative (Negative) Urine Blood 1+ /uL (Negative) H Urine Nitrite Negative (Negative) Urine Bilirubin Negative (Negative) Urine Urobilinogen Normal mg/dL (Negative) Urine Leukocyte Esterase 2+ /uL (Negative) Urine RBC 3 /hpf (0 - 4) Urine Microscopic WBC 11 /HPF (0-5) H Urine Squamous Epithelial Cells Few /hpf (<5) Urine Bacteria None seen /hpf (None Seen) Urine Hyaline Casts Few /lpf (0 - 2) Urine Glucose Normal mg/dL (Normal) Labs and/or images reviewed: Labs reviewed by me, Image(s) reviewed by me Assessment/Plan Assessment/Plan 03/09 patient recently admitted for acute cystitis where she also had a similar epigastric pain radiating to bilateral flanks. Patient is returning now with ongoing pain and intractable nausea. - Patient continues to have pain epigastrium, tender to palpation. On ROS she describes it radiating to the bilateral flanks in the upper bilateral quadrants. Denies any vaginal or urethral discharge. Has 2 kids. No nausea no vomiting, no diarrhea, no dysuria. Patient will likely need further workup for cause of pain. At current time imaging indicates possible: Infection with lymphadenopathy. Patient has had not had anything out of her ordinary routine foods and she eats the low spice diet. We will test GC, H pylori. Sepsis due to below Gastroenteritis, infectious etiology likely Cecal inflammation, ascending colon inflammation with narrowing, likely due to above Mesenteric lymphadenopathy, infectious etiology likely Acute complicated cystitis possible Tachycardia, resolved Tachypnea, resolved Leukocytosis, resolved Neutrophilia, resolved Continue Protonix and Carafate. Full liquid diet. IV antibiotics ceftriaxone metronidazole P.r.n. pain control analgesia Slow IV fluids, p.o. hydration as tolerated DVT prophylaxis GI prophylaxis Med surge Full code Plan discussed with: Patient Date of Service: March 09, 2025 Billing Provider: JOSIE MIRANDA MD Common Visit Codes: [id number] INP/OBS CARE(HIGH) JOSIE MIRANDA MD March 09, 2025 13:27
[2025-03-09 15:16] LABS: Hepatitis B Surface Antigen Negative (Negative); Hepatitis C Antibody Negative (Negative)
[2025-03-09] MEDS: ACETAMINOPHEN 325 MG TAB PO PRN (15:56)
[2025-03-09] MEDS: SUCRALFATE 1 GM/10 ML ORAL SUSP GT SCH (21:10)
[2025-03-10] VITALS (7 sets, daily range): BP systolic 93–106; BP diastolic 64–79; PULSE 70–88; RESP 15–18; TEMP 97.7–98.5; O2SAT 95–99
[2025-03-10 06:48] LABS: Alanine Aminotransferase 24 U/L (7-40); Alkaline Phosphatase 69 U/L (46-116); Anion Gap 8 (5-15); Aspartate Aminotransferase 21 U/L (13-40); Calcium 9.2 mg/dL (8.7-10.4); Carbon Dioxide 25 mmol/L (20-31); Glucose 89 mg/dL (74-106); Potassium 3.7 mmol/L (3.5-5.1); Sodium 140 mmol/L (136-145); Total Protein 6.1 g/dL (5.7-8.2)
[2025-03-10 06:49] LABS: Chloride 107 mmol/L (98-107)
[2025-03-10 06:50] LABS: BUN/Creatinine Ratio 8.9 (10.0-20.0); Blood Urea Nitrogen < 5 mg/dL (9-23)
[2025-03-10 06:54] LABS: Basophils # (auto) 0 10 ^3/uL (0-0.2); Basophils % (auto) 0.5 % (0.0-2.0); Eosinophils # (auto) 0.1 10 ^3/uL (0-0.8); Eosinophils % (auto) 1.8 % (0.0-7.0); Hematocrit 36.6 % (36.0-46.0); Hemoglobin 12.4 g/dL (12.2-16.2); Lymphocytes # (auto) 2.1 10 ^3/uL (0.4-5.4); Lymphocytes % (auto) 30.4 % (10.0-50.0); Mean Corpuscular Hemoglobin 29.7 pg (28.0-32.0); Mean Corpuscular Hgb Conc. 33.9 g/dL (32.0-36.0); Mean Corpuscular Volume 87.6 fL (80.0-100.0); Monocytes # (auto) 0.8 10 ^3/uL (0-1.3); Monocytes % (auto) 11.3 % (0.0-12.0); Neutrophils # (auto) 3.8 10 ^3/uL (1.6-8.6); Nucleated Red Blood Cells % 0.1 %; Platelet Count (auto) 263 10^3/uL (140-450); Red Blood Cells 4.18 10^6/uL (4.0-5.20); Red Cell Distribution Width 13.4 % (11.8-14.3); White Blood Cell 6.8 10^3/uL (4.4-10.8)
[2025-03-10 08:19] LABS: Bilirubin, Total 0.4 mg/dL (0.2-1.0)
--- NOTE | 2025-03-10 11:18 | DVHPN2 ---
Subjective - Patient continues to have pain epigastrium, tender to palpation. On ROS she describes it radiating to the bilateral flanks in the upper bilateral quadrants. Denies any vaginal or urethral discharge. Has 2 kids. No nausea no vomiting, no diarrhea, no dysuria. Reviewed: H&P Changes from previous H/P or p: No Changes General: Per HPI Eyes: No Pain, No Vision change, No Conjunctivae inflammation, No Eyelid inflammation, No Other, No Redness ENT: No Ear pain, No Ear discharge, No Nose pain, No Nose discharge, No Nose congestion, No Mouth pain, No Mouth swelling, No Throat pain, No Throat swelling, No Other Cardiovascular: No Chest Pain, No Palpitations, No Orthopnea, No Paroxysmal Noc. Dyspnea, No Edema, No Lt Headedness, No Other Respiratory: No Cough, No Dry, No Shortness of breath, No SOB with excertion, No Wheezing, No Hemoptysis, No Pleuritic Pain, No Sputum, No Other Gastrointestinal: Nausea; No Vomiting; Abdominal Pain; No Diarrhea; C onstipation; No Melena, No Hematochezia, No Other Genitourinary: No Dysuria, No Frequency, No Incontinence, No Hematuria, No Retention, No Other Musculoskeletal: No other, No neck pain, No shoulder pain, No arm pain, No back pain, No hand pain, No leg pain, No foot pain Skin: No Rash, No Lesions, No Jaundice, No Bruising, No Other Objective Vitals Vital Signs Date Time Temp Pulse Resp B/P (MAP) Pulse Ox O2 Delivery O2 Flow Rate FiO2 03/10/25 08:56 98.5 84 15 105/67 (80) 99 98.5 03/10/25 08:10 Room Air* 0 21 Intake/Output Intake and Output 03/10/25 07:00 Intake Total 1750 ml Balance 1750 ml Intake Oral 1200 ml IV Total 100 ml Tube Feeding 450 ml # Voids 5 Exam GEN: Healthy appearing, well-developed, NAD. HEENT: NC/AT; MMM. CV: RRR, no m/r/g. LUNGS: CTAB, no w/r/c. ABD: Tenderness to epigastrium, mildly hyperactive bowel sounds EXT: skin Warm, well perfused. no rashes. No clubbing, cyanosis, or edema. NEURO: Ambulating with no limitations. No focal deficits. Medications Current Medications Medications Dose Ordered Sig/Stalin Route Start Time Stop Time Status Last Admin Dose Admin Metronidazole 100 ml @ 100 mls/hr Q8HR IV 03/09/25 06:00 03/10/25 05:25 100 MLS/HR Ceftriaxone Sodium 50 ml @ 100 mls/hr DAILY@09 IV 03/09/25 09:00 03/10/25 08:37 100 MLS/HR Pantoprazole Sodium 40 mg DAILY IV 03/09/25 10:00 03/10/25 08:36 40 MG Sodium Chloride 1,000 ml @ 60 mls/hr [id number] IV 03/09/25 00:00 03/10/25 08:37 60 MLS/HR Acetaminophen/ Hydrocodone Bitart 1 tab Q4HP PRN PO 03/09/25 00:00 03/10/25 08:52 1 TAB Ondansetron HCl 4 mg Q4HP PRN IV 03/09/25 00:00 03/10/25 05:32 4 MG Docusate Sodium 100 mg BIDPRN PRN PO 03/09/25 00:00 Acetaminophen 650 mg Q6HP PRN PO 03/09/25 00:00 03/09/25 15:56 650 MG Morphine Sulfate 2 mg Q4HPRN PRN IV 03/09/25 00:00 03/09/25 12:11 2 MG Nitroglycerin 0.4 mg Q5MINP PRN SL 03/09/25 00:00 Morphine Sulfate 2 mg Q30M PRN IV 03/09/25 00:00 Sucralfate 1 gm BID@0600,2200 GT 03/09/25 22:00 03/10/25 05:25 1 GM Laboratory Results Laboratory Tests 03/10/25 05:38 Chemistry Test 03/10/25 05:38 Albumin 4.0 g/dL (3.2-4.8) Calcium Level 9.2 mg/dL (8.7-10.4) Total Protein 6.1 g/dL (5.7-8.2) LFT Test 03/10/25 05:38 Alanine Aminotransferase (ALT) 24 U/L (7-40) Alkaline Phosphatase 69 U/L (46-116) Aspartate Amino Transferase (AST) 21 U/L (13-40) Total Bilirubin 0.4 mg/dL (0.2-1.0) Urinalysis Test 03/08/25 21:32 Urine Color Light-yellow (Yellow) Urine Clarity Clear (Clear) Urine pH 7.5 (5.0-9.0) Urine Specific [place] 1.007 (1.001-1.035) Urine Protein Negative (Negative) Urine Ketones Negative (Negative) Urine Blood 1+ /uL (Negative) H Urine Nitrite Negative (Negative) Urine Bilirubin Negative (Negative) Urine Urobilinogen Normal mg/dL (Negative) Urine Leukocyte Esterase 2+ /uL (Negative) Urine RBC 3 /hpf (0 - 4) Urine Microscopic WBC 11 /HPF (0-5) H Urine Squamous Epithelial Cells Few /hpf (<5) Urine Bacteria None seen /hpf (None Seen) Urine Hyaline Casts Few /lpf (0 - 2) Urine Glucose Normal mg/dL (Normal) Microbiology Microbiology Date/Time Source Procedure Growth Status 03/09/25 01:30 Nose MRSA Screen - Final Complete Labs and/or images reviewed: Labs reviewed by me, Image(s) reviewed by me Assessment/Plan Assessment/Plan 03/09 patient recently admitted for acute cystitis where she also had a similar epigastric pain radiating to bilateral flanks. Patient is returning now with ongoing pain and intractable nausea. - Patient continues to have pain epigastrium, tender to palpation. On ROS she describes it radiating to the bilateral flanks in the upper bilateral quadrants. Denies any vaginal or urethral discharge. Has 2 kids. No nausea no vomiting, no diarrhea, no dysuria. Patient will likely need further workup for cause of pain. At current time imaging indicates possible: Infection with lymphadenopathy. Patient has had not had anything out of her ordinary routine foods and she eats the low spice diet. We will test GC, H pylori. 03/10 minimally tolerating p.o., continues to have pain. we will get right upper quadrant ultrasound to rule out cholelithiasis as cause. We will continue treating as colitis for now with IV antibiotics, clear liquid diet. This could also be worsening acute on chronic peptic ulcer disease, continue IV Protonix with b.i.d. Carafate. If pain continues patient may need Gastrografin series tomorrow. Currently holding off GI consult, but we will keep low threshold for possible need upper egd Sepsis due to below Gastroenteritis, infectious etiology likely Cecal inflammation, ascending colon inflammation with narrowing, likely due to above Mesenteric lymphadenopathy, infectious etiology likely Acute complicated cystitis possible Tachycardia, resolved Tachypnea, resolved Leukocytosis, resolved Neutrophilia, resolved Continue Protonix and Carafate. Full liquid diet. IV antibiotics ceftriaxone metronidazole P.r.n. pain control analgesia Slow IV fluids, p.o. hydration as tolerated DVT prophylaxis GI prophylaxis Med surge Full code Plan discussed with: Patient My Orders Orders - JOSIE MIRANDA MD Procedure Category Date Status Time Chlamydia/Gc LAB 03/09/25 In Process Amplification 16:03 Sucralfate Susp PHA 03/09/25 In Process (Carafate Susp) 22:00 Drug Screen LAB 03/10/25 Logged 11:13 Abdomen Limited US 03/10/25 Transmitted 11:15 Date of Service: March 10, 2025 Billing Provider: JOSIE MIRANDA MD Common Visit Codes: [id number] INP/OBS CARE(HIGH) JOSIE MIRANDA MD March 10, 2025 11:18
--- NOTE | 2025-03-10 13:04 | DVH ---
Procedure: US ABDOMEN LIMITED 03/10/2025 11:44 AM Indication: abd pain, r/o cholelithiasis Comparison: None Technique: Grayscale and color images of the right upper quadrant were obtained. FINDINGS: ASCITES: None. LIVER: Liver measures 13.8 cm in craniocaudal. Liver parenchyma is diffusely coarse slightly echogen ic scratched at. No focal lesion is identified. No intrahepatic ductal dilatation. Normal directiona l flow is seen in the portal vein. GALLBLADDER: No gallstones. A subcentimeter polyp noted. No gallbladder wall edema or pericholecystic fluid. Gallbladder wall thickness is 0.2 cm. Sonographic Darling's sign is negative. COMMON BILE DUCT: 0.5 cm in caliber. PANCREAS: Visualized portions are unremarkable. RIGHT KIDNEY: 10.8 cm in length. No hydronephrosis. No lesions identified. AORTA, IVC: Visualized portions are unremarkable. OTHER: None. IMPRESSION: 1. No sonographic evidence for acute abnormality in the right upper quadrant. 2. Subcentimeter gallbladder polyp. 3. Diffusely coarse and echogenic liver parenchyma underlying diffuse hepatocellular disease such as hepatic steatosis, cirrhosis or hepatitis. There is no nodularity of liver contour. Recommend clinica l and biochemical correlation.
[2025-03-11 01:00] VITALS: BP 109/62; PULSE 68; RESP 16; TEMP 97.7; O2SAT 97
[2025-03-11 05:10] VITALS: BP 102/60; PULSE 74; RESP 17; TEMP 98; O2SAT 99
[2025-03-11 06:56] LABS: Chloride 107 mmol/L (98-107); Potassium 3.9 mmol/L (3.5-5.1); Sodium 141 mmol/L (136-145)
[2025-03-11 06:57] LABS: Anion Gap 7 (5-15); Carbon Dioxide 27 mmol/L (20-31)
[2025-03-11 07:03] LABS: BUN/Creatinine Ratio 11.5 (10.0-20.0); Glucose 85 mg/dL (74-106)
[2025-03-11 07:07] LABS: Blood Urea Nitrogen 6 mg/dL (9-23); Calcium 8.5 mg/dL (8.7-10.4)
[2025-03-11 09:00] VITALS: BP 108/60; PULSE 67; RESP 18; TEMP 97.9; O2SAT 94
[2025-03-11] MEDS ORDERED: GASTROGRAFIN 120 ML SOL ONE (09:12)
--- NOTE | 2025-03-11 12:05 | DVH ---
Procedure: XY SMALL BOWEL SERIES-W GASTROGRA Exam Date: 03/11/2025 09:26 AM Reason for study/Clinical History: poor po tolerance. eval transit Comparison Study: None Technique: Single contrast small bowel series performed. Findings: Initial director of casework department view of the abdomen and pelvis appears demonstrates no acute process. Contrast is identified within the colon by 1 hour. This represents a normal small bowel transit time . Small bowel loops are normal in size. Normal mucosal pattern. No evidence of small bowel obstructi on, stricture, or mucosal abnormality. The terminal ileum is well visualized and is unremarkable. IMPRESSION: Normal small bowel series. END IMPRESSION:
[2025-03-11 12:40] VITALS: BP 123/72; PULSE 74; RESP 18; TEMP 97.4; O2SAT 95
[2025-03-11] MEDS ORDERED: ZOFR4T PO (15:05)
[2025-03-11] MEDS ORDERED: HYDR-4902 PO (15:05)
[2025-03-11] MEDS ORDERED: AUG875T PO (15:05)
[2025-03-11] MEDS ORDERED: PANT40TA2 PO (15:05)
[2025-03-11] MEDS ORDERED: SUCR1SUS26 PO (15:05)
--- NOTE | 2025-03-11 15:09 | DVHDS2 ---
Discharge Summary Date of Admission March 08, 2025 at 23:51 Date of Discharge: March 11, 2025 Labs/Diagnostic Data: Laboratory Results Test 03/11/25 05:52 03/10/25 05:38 03/09/25 07:41 03/08/25 21:32 Sodium Level 141 mmol/L (136-145) Potassium Level 3.9 mmol/L (3.5-5.1) Chloride Level 107 mmol/L (98-107) Carbon Dioxide Level 27 mmol/L (20-31) Anion Gap 7 (5-15) Blood Urea Nitrogen 6 mg/dL (9-23) Creatinine 0.52 mg/dL (0.550-1.02) Glomerular Filtration Rate Calc 129 mL/min (>90) BUN/Creatinine Ratio 11.5 (10.0-20.0) Serum Glucose 85 mg/dL (74-106) Calcium Level 8.5 mg/dL (8.7-10.4) White Blood Count 6.8 10^3/uL (4.4-10.8) Red Blood Count 4.18 10^6/uL (4.0-5.20) Hemoglobin 12.4 g/dL (12.2-16.2) Hematocrit 36.6 % (36.0-46.0) Mean Corpuscular Volume 87.6 fL (80.0-100.0) Mean Corpuscular Hemoglobin 29.7 pg (28.0-32.0) Mean Corpuscular Hemoglobin Concent 33.9 g/dL (32.0-36.0) Red Cell Distribution Width 13.4 % (11.8-14.3) Platelet Count 263 10^3/uL (140-450) Mean Platelet Volume 7.6 fL (6.9-10.8) Neutrophils (%) (Auto) 56.0 % (37.0-80.0) Lymphocytes (%) (Auto) 30.4 % (10.0-50.0) Monocytes (%) (Auto) 11.3 % (0.0-12.0) Eosinophils (%) (Auto) 1.8 % (0.0-7.0) Basophils (%) (Auto) 0.5 % (0.0-2.0) Neutrophils # (Auto) 3.8 10 ^3/uL (1.6-8.6) Lymphocytes # (Auto) 2.1 10 ^3/uL (0.4-5.4) Monocytes # (Auto) 0.8 10 ^3/uL (0-1.3) Eosinophils # (Auto) 0.1 10 ^3/uL (0-0.8) Basophils # (Auto) 0 10 ^3/uL (0-0.2) Nucleated Red Blood Cells 0.1 % Total Bilirubin 0.4 mg/dL (0.2-1.0) Aspartate Amino Transferase (AST) 21 U/L (13-40) Alanine Aminotransferase (ALT) 24 U/L (7-40) Alkaline Phosphatase 69 U/L (46-116) Total Protein 6.1 g/dL (5.7-8.2) Albumin 4.0 g/dL (3.2-4.8) Hepatitis B Surface Antigen Negative (Negative) Hepatitis C Antibody Negative (Negative) Urine Color Light-yellow (Yellow) Urine Clarity Clear (Clear) Urine pH 7.5 (5.0-9.0) Urine Specific [place] 1.007 (1.001-1.035) Urine Protein Negative (Negative) Urine Ketones Negative (Negative) Urine Blood 1+ /uL (Negative) Urine Nitrite Negative (Negative) Urine Bilirubin Negative (Negative) Urine Urobilinogen Normal mg/dL (Negative) Urine Leukocyte Esterase 2+ /uL (Negative) Urine RBC 3 /hpf (0 - 4) Urine Microscopic WBC 11 /HPF (0-5) Urine Squamous Epithelial Cells Few /hpf (<5) Urine Bacteria None seen /hpf (None Seen) Urine Hyaline Casts Few /lpf (0 - 2) Urine Glucose Normal mg/dL (Normal) Test 03/08/25 21:20 Lactic Acid Level 1.0 mmol/L (0.4-2.0) Troponin I High Sensitivity < 3 ng/L (</=34) Lipase 36 U/L (12-53) Other Laboratory Tests 03/11/25 05:52 03/10/25 05:38 Brief Hx & Hospital Course: 03/09 patient recently admitted for acute cystitis where she also had a similar epigastric pain radiating to bilateral flanks. Patient is returning now with ongoing pain and intractable nausea. - Patient continues to have pain epigastrium, tender to palpation. On ROS she describes it radiating to the bilateral flanks in the upper bilateral quadrants. Denies any vaginal or urethral discharge. Has 2 kids. No nausea no vomiting, no diarrhea, no dysuria. Patient will likely need further workup for cause of pain. At current time imaging indicates possible: Infection with lymphadenopathy. Patient has had not had anything out of her ordinary routine foods and she eats the low spice diet. We will test GC, H pylori. 03/10 minimally tolerating p.o., continues to have pain. we will get right upper quadrant ultrasound to rule out cholelithiasis as cause. We will continue treating as colitis for now with IV antibiotics, clear liquid diet. This could also be worsening acute on chronic peptic ulcer disease, continue IV Protonix with b.i.d. Carafate. If pain continues patient may need Gastrografin series tomorrow. Currently holding off GI consult, but we will keep low threshold for possible need upper egd 03/11 - Gastrografin negative, pain improving, tolerating liquid diet, bowel movements soft/normal, ambulating, well hydrated, vital signs stable,. Patient can follow up with GI outpatient. Patient is stable for discharge as per plan below. Discharge diagnosis: Sepsis due to below Gastroenteritis, infectious etiology likely Acute complicated cystitis possible peptic ulcer disease possible Cecal inflammation, ascending colon inflammation with narrowing, likely due to above Mesenteric lymphadenopathy, infectious etiology likely Tachycardia, resolved Tachypnea, resolved Leukocytosis, resolved Neutrophilia, resolved Discharge plan: - Full liquid diet 1-2 weeks, advance as tolerated - for pain 3rd line use [place] 5 mg up to 3 times daily as needed (4 1st line use OTC Tylenol, second-line OTC ibuprofen) - Protonix daily, oral 40 mg, for 30 days - Carafate 100 mg twice daily, for 30 days - Augmentin 875 mg twice daily for 7 days - take probiotics/ [place] yogurt daily x 14 days, Mixed with water to fit liquid diet - take Zofran 4 mg sublingual dissolving as needed up to 3 times daily for nausea - Follow up with PCP to review discharge - Referral to GI for recurrent abdominal pain Condition at Discharge: Fair Final Diagnosis/Problems List Sepsis due to below Gastroenteritis, infectious etiology likely Acute complicated cystitis possible peptic ulcer disease possible Cecal inflammation, ascending colon inflammation with narrowing, likely due to above Mesenteric lymphadenopathy, infectious etiology likely Tachycardia, resolved Tachypnea, resolved Leukocytosis, resolved Neutrophilia, resolved Discharge Disposition: Home Discharge Instruct/Medications Diet: See Comment Diet comment: FLD Activity: No Restrictions, As Tolerated Follow Up/Referral: below Medications: below Discharge Statement: "Patient was advised to return to the ER or call 911 if any headaches, dizziness, shortness of breath, chest pain, abdominal pain, bleeding, fevers, or worsening of medical condition. Patient was counseled about treatment plan, medications, possible side effects, patientverbalized understanding. All questions were answered to the best of my ability. This discharge took greater then 30 minutes in planning, reviewing documentation, counseling the patient, and discussing with other team members." Date of Service: March 11, 2025 Billing Provider: JOSIE MIRANDA MD Common Visit Codes: 31639-KRG/OBS DISCH DAY >30min JOSIE MIRANDA MD March 11, 2025 15:09
[2025-03-11 15:56] VITALS: BP 123/72; PULSE 74; RESP 18; TEMP 97.4; O2SAT 96
[2025-03-11 16:42] VITALS: BP 107/70; PULSE 81; RESP 18; TEMP 97.6; O2SAT 95
[2025-03-11 21:07] LABS: Chlamydia Trachomatis, NAA Negative (Negative); Neisseria gonorrhoeae, NAA Negative (Negative)
== END 2025-03-11 17:00 | disposition home or self-care (01) | DRG 720 ==
LOC: ER 20:27 → OVERFLOW 23:51 → EAST 03-09 00:53
PROVIDERS: ADMIT Student in an Organized Health Care Education/Training Program; ATTEND Student in an Organized Health Care Education/Training Program
DX: A41.9 Sepsis, unspecified organism (principal); A09 Infectious gastroenteritis and colitis, unspecified; N30.00 Acute cystitis without hematuria; R59.1 Generalized enlarged lymph nodes; K27.9 Peptic ulcer, site unspecified, unspecified as acute or chronic, without hemorrhage or perforation; K59.00 Constipation, unspecified; Z79.899 Other long term (current) drug therapy; D72.828 Other elevated white blood cell count
CPT/HCPCS: 36415; 74176; 74250; 76705; 80048; 80053; 81001; 83605; 83690; 84484; 85025; 86803; 87081; 87340; 96361; 96374; 96375; G0378; J1956; J2405; J2470; J3490

== ENCOUNTER 2025-10-17 12:17 | Emergency (ER) | payer MEDICAID ==
[~2025-10-17] VITALS: Ht 149.9 cm; Wt 85.4 kg
[~2025-10-17 12:17] MED LIST: AUG875T PO; HYDR-4902 PO; PANT40TA2 PO; SUCR1SUS26 PO; ZOFR4T PO
--- NOTE | 2025-10-17 13:00 | ED.PDOC ---
[facility]W[facility] [employer]ER HPI Comments 29-year-old female presents to the ED for chief complaint of nausea and vomiting that started 3 days ago. 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 Patient reports she is unable to keep any fluids or food down and states she now presents with a hematemesis described as bright red blood. 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 She denies any vaginal bleeding, fever, chills, diarrhea, back pain, abdominal pain. Chief Complaint: Nausea/Vomiting Time Seen by MD: 12:48 Reviewed Notes: Nurses Notes, Medications, Allergies Allergies: Coded Allergies: NO KNOWN ALLERGIES (Unverified , 03/07/25) Home Meds Active Scripts Hydrocodone-Acetaminophen (Hydrocodone Bitartrate/AC 5-325 mg) 1 Tab Tab, 1 TAB PO TIDP PRN for 7 Days, #20 TAB 0 Refills Prov:JOSIE MIRANDA MD 03/11/25 Ondansetron Odt 4MG Tab (ZOFRAN PO) 4 Mg Tb, 4 MG PO TIDP PRN, #25 TAB 0 Refills ODT TAB-DISSOLVE IN MOUTH, THEN SWALLOW Prov:JOSIE MIRANDA MD 03/11/25 Sucralfate (CARAFATE SUSP) 1 Gm/10 Ml Ss, 10 ML PO BID for 30 Days, #600 ML 0 Refills Prov:JOSIE MIRANDA MD 03/11/25 Pantoprazole Sodium Sesquihydr (Protonix) 40 Mg Tab, 40 MG PO DAILY for 30 Days, #30 TAB 0 Refills Prov:JOSIE MIRANDA MD 03/11/25 Amoxicillin & Pot Clavulanate (AUGMENTIN TABLET) 875 Mg Tb, 875 MG PO BID for 7 Days, #14 TAB Prov:JOSIE MIRANDA MD 03/11/25 Information Source: Patient Mode of Arrival: Ambulatory Timing: Days (3) Severity: Moderate Onset Of Mass/Bleeding: Spontaneous Last Consensual [place]: Unknown Control: None History of: Current Associated Signs and Symptoms: N/V Past Medical History PAST MEDICAL HISTORY: UTI'S Surgical History: Denies all surgeries [employer]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: No Pertinent [employer]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 Family History Family History: Reviewed,noncontributory to illness, No family hx of Cancer, No family hx of DM, No family hx of Heart christie, No family hx of HTN, No family hx ofKidney christie, No family hx of Liver christie, No family hx of Lung christie, No family hx of Stroke Social History Smoker: Non-Smoker Alcohol: Denies ETOH Use Drugs: Marijuana Lives In: Home Constitutional: denies: chills, diaphoresis, fatigue, fever, malaise, sweats, weakness, others EENTM: denies: blurred vision, double vision, ear bleeding, ear discharge, ear drainage, ear pain, ear ringing, eye pain, eye redness, hearing loss, mouth pain, mouth swelling, nasal discharge, nose bleeding, nose congestion, nose pain, photophobia, tearing, throat pain, throat swelling, voice changes, others Respiratory: denies: cough, hemoptysis, orthopnea, SOB at rest, shortness of breath, SOB with excertion, stridor, wheezing, others Cardiovascular: denies: chest pain, dizzy spells, diaphoresis, Dyspnea on exertion, edema, irregular heart beat, left arm pain, lightheadedness, palpi tations, PND, syncope, others Gastrointestinal: reports: hematemesis, nausea, poor appetite, poor fluid intake, vomiting; denies: abdomen distended, abdominal pain, blood streaked bowels, constipated, diarrhea, dysphagia, difficulty swallowing, melena, rectal bleeding, rectal pain, others Genitourinary: reports: abnormal vagina bleeding; denies: burning, dyspareunia, dysuria, flank pain, frequency, hematuria, incontinence, pain, , vagina discharge, urgency, others Neurological: denies: dizziness, fainting, headache, left sided numbness, left sided weakness, numbness, paresthesia, pre-existing deficit, right sided numbness, right sided weakness, seizure, speech problems, tingling, tremors, weakness, others Musculoskeletal: denies: back pain, gout, joint pain, joint swelling, muscle pain, muscle stiffness, neck pain, others Integumetry: denies: bruises, change in color, change in hair/nails, dryness, laceration, lesions, lumps, rash, wounds, others Allergic/Immunocompromised: denies: Difficulty Healing, Frequent Infections, Hives, Itching, others Hematologic/Lymphatic: denies: anemia, blood clots, easy bleeding, easy bruising, swollen glands, others Endocrine: denies: excessive hunger, excessive sweating, excessive thirst, excessive urination, flushing, intolerance to cold, intolerance to heat, unexplained weight gain, unexplained weight loss, others Psychiatric: denies: anxiety, bipolar disorder, depression, hopeless, panic disorder, schizophrenia, sleepless, suicidal, others All Other Systems: Reviewed and Negative Physical Exam General Appearance: Moderate Distress HEENT: Normal ENT Inspection, Pharynx Normal, TMs Normal Neck: Full Range of Motion, Non-Tender, Normal, Normal Inspection Respiratory: Chest Non-Tender, Lungs Clear, No Accessory Muscle Use, No Respiratory Distress, Normal Breath Sounds Cardiovascular: No Edema, No JVD, No Murmur, No Gallop, Normal Peripheral Pulses, Regular Rate/Rhythm Breast Exam: Deferred Gastrointestinal: No Organomegaly, Non Tender, No Pulsatile Mass, Normal Bowel Sounds, Soft Genitalia: Deferred Pelvic: Deferred Rectal: Deferred Extremities: No calf tenderness, Normal capillary refill, Normal inspection, Normal range of motion, Non-tender, No pedal edema Musculoskeletal : Apperance: Normal Neurologic: Alert, broomcorn seeder II-XII nml as Tested, No Motor Deficits, Normal Affect, Normal Mood, No Sensory Deficits Cerebellar Function: Normal Reflexes: Normal Skin: Dry, Normal Color, Warm Peripheral Pulses: 3+ Radial (R), 3+ Radial (L) Lymphatic: No Adenopathy Was a procedure done? Was a procedure done?: No Differential Diagnosis (EXECUT[employer] CHA[employer]MAN OF [employer]) Vaginal Bleeding: - Complete, - Incomplete, - Inevitable, - Missed, - Threatened Comments , dehydration, PUD X-Ray, Labs, Meds, VS Vital Signs Date Time Temp Pulse Resp B/P (MAP) Pulse Ox O2 Delivery O2 Flow Rate FiO2 10/17/25 15:05 84 17 133/83 (100) 98 10/17/25 13:07 98.2 80 18 100 98.2 10/17/25 12:23 98.2 88 17 108/86 99 98.2 Lab Test 10/17/25 13:35 10/17/25 13:14 Range/Units Urine Color Yellow Yellow Urine Clarity Turbid H Clear Urine pH 6.0 5.0-9.0 Urine Specific [place] 1.032 1.001-1.035 Urine Protein 1+ H Negative Urine Ketones 4+ H Negative Urine Blood 1+ H Negative /uL Urine Nitrite Negative Negative Urine Bilirubin Negative Negative Urine Urobilinogen Normal Negative mg/dL Urine Leukocyte Esterase 3+ Negative /uL Urine RBC 46 0 - 4 /hpf Urine Microscopic WBC 39 H 0-5 /HPF Urine Squamous Epithelial Cells Many <5 /hpf Urine Bacteria Few H None Seen /hpf Urine Mucus Few None Seen Urine Glucose Normal Normal mg/dL Urine Test Positive Negative White Blood Count 9.8 4.4-10.8 10^3/uL Red Blood Count 4.71 4.0-5.20 10^6/uL Hemoglobin 13.8 12.2-16.2 g/dL Hematocrit 41.4 36.0-46.0 % Mean Corpuscular Volume 87.8 80.0-100.0 fL Mean Corpuscular Hemoglobin 29.4 28.0-32.0 pg Mean Corpuscular Hemoglobin Concent 33.4 32.0-36.0 g/dL Red Cell Distribution Width 14.1 11.8-14.3 % Platelet Count 301 140-450 10^3/uL Mean Platelet Volume 7.2 6.9-10.8 fL Neutrophils (%) (Auto) 69.4 37.0-80.0 % Lymphocytes (%) (Auto) 23.1 10.0-50.0 % Monocytes (%) (Auto) 5.7 0.0-12.0 % Eosinophils (%) (Auto) 0.6 0.0-7.0 % Basophils (%) (Auto) 1.2 0.0-2.0 % Neutrophils # (Auto) 6.8 1.6-8.6 10 ^3/uL Lymphocytes # (Auto) 2.3 0.4-5.4 10 ^3/uL Monocytes # (Auto) 0.6 0-1.3 10 ^3/uL Eosinophils # (Auto) 0.1 0-0.8 10 ^3/uL Basophils # (Auto) 0.1 0-0.2 10 ^3/uL Nucleated Red Blood Cells 0.0 % Sodium Level 139 136-145 mmol/L Potassium Level 3.7 3.5-5.1 mmol/L Chloride Level 105 98-107 mmol/L Carbon Dioxide Level 23 20-31 mmol/L Anion Gap 11 5-15 Blood Urea Nitrogen 7 L 9-23 mg/dL Creatinine 0.50 L 0.550-1.02 mg/dL Glomerular Filtration Rate Calc 130 >90 mL/min BUN/Creatinine Ratio 14.0 10.0-20.0 Serum Glucose 88 74-106 mg/dL Calcium Level 9.3 8.7-10.4 mg/dL Current Medications Medications (Trade) Dose Ordered Sig/Stalin Route Start Time Stop Time Status Last Admin Diphenhydramine HCl (Benadryl Injection) 25 mg ONCE ONCE IM 10/17/25 13:00 10/17/25 13:01 DC 10/17/25 15:35 Patient alert. Came in because of nausea. Vitals stable. Answering questions. States that she maybe . Was given Benadryl. WBC within normal limits. Hemoglobin within normal limits. No abdominal cramping. No bleeding. No leg swelling. UA shows UTI. Was given prescription of Keflex antibiotic. Explained to the patient. Was told to follow up with her OBGYN. Was told to follow up with her primary care physician. Was told to come back if there is any problem. Time of 1ST Reevaluation: 12:57 Reevaluation 1ST: Improved Patient Education/Counseling: Diagnosis, Treatment, Prognosis Family Education/Counseling: No Family Present Departure 1 Departure Time of Disposition: 13:42 Impression: Primary Impression: Normal Qualified Codes: Z34.90 - Encounter for supervision of normal , unspecified, unspecified trimester Additional Impression: UTI (urinary tract infection) Qualified Codes: N30.00 - Acute cystitis without hematuria Disposition: 01 HOME / SELF CARE / HOMELESS Condition: Good e-Prescriptions Cephalexin (KEFLEX CAPSULE) 250 Mg Cp 250 MG PO QID for 10 Days, #40 BOTTLE Prov: EMIR DIAL MD 10/17/25 Discharged With: Self Critical Care Note Critical Care Time?: No Stability Stability form required: No I personally scribed for EMIR DIAL MD ([email or web address]) on 10/17/25 at 13:00. Electronically submitted by Margie Robins ([facility]). EMIR DIAL MD Oct 17, 2025 13:00
[2025-10-17 13:26] LABS: Hematocrit 41.4 % (36.0-46.0); Hemoglobin 13.8 g/dL (12.2-16.2); Mean Corpuscular Hemoglobin 29.4 pg (28.0-32.0); Mean Corpuscular Volume 87.8 fL (80.0-100.0); Nucleated Red Blood Cells % 0.0 %
[2025-10-17 13:33] LABS: Chloride 105 mmol/L (98-107); Potassium 3.7 mmol/L (3.5-5.1); Sodium 139 mmol/L (136-145)
[2025-10-17 13:34] LABS: Anion Gap 11 (5-15); Carbon Dioxide 23 mmol/L (20-31)
[2025-10-17 13:35] LABS: Calcium 9.3 mg/dL (8.7-10.4)
[2025-10-17 13:39] LABS: BUN/Creatinine Ratio 14.0 (10.0-20.0); Glucose 88 mg/dL (74-106)
[2025-10-17 13:40] LABS: Blood Urea Nitrogen 7 mg/dL (9-23)
[2025-10-17 13:55] LABS: Urine Protein, UAD 1+ (Negative)
[2025-10-17] MEDS: diphenhydrAMINE HCL 50 MG/1 ML VL IM ONE (15:35)
[2025-10-17] MEDS ORDERED: CEPH250C PO (16:20)
[2025-10-17 16:43] VITALS: BP 131/79; PULSE 78; RESP 18; TEMP 98.4; O2SAT 99
== END 2025-10-17 16:45 | disposition home or self-care (01) ==
LOC: ER 12:17
DX: N39.0 Urinary tract infection, site not specified (principal); Z34.90 Encounter for supervision of normal pregnancy, unspecified, unspecified trimester; Z79.899 Other long term (current) drug therapy; Z3A.00 Weeks of gestation of pregnancy not specified
CPT/HCPCS: 36415; 80048; 81001; 81025; 85025; 96372; 99283; J1200